=== PATIENT | female | born 1975 | race Caucasian/White ===

== ENCOUNTER 2019-07-13 19:46 | Emergency (ER) | payer OTHER ==
--- NOTE | 2019-07-13 19:57 | PDOC ---
Rapid Medical Evaluation Chief Complaint: SIRS, Suspected/Possible Time Seen by Provider: 07/13/19 19:51 Medical Evaluation: Allergies Allergy/AdvReac Type Severity Reaction Status Date / Time No Known Allergies Allergy Verified 10/30/14 08:54 Vital Signs Temp Pulse Resp BP Pulse Ox 102.4 F H 97 H 18 131/74 99 07/13/19 19:52 07/13/19 19:52 07/13/19 19:52 07/13/19 19:52 07/13/19 19:52 07/13/19 19:54 I have performed a brief in-person evaluation of this patient. The patient presents with a chief complaint of: 4 days h/o fever and posterior neck pain to top of posterior neck. Pt also report photophobia. Denies N/V. Pt seen in urgent care and sent in to r/o meningitis Pertinent physical exam findings: fever of 102F. mild TTP over occiput and posterior cervical spine of C2. no meningeal sign I have ordered the following: CBC, CMP, IV insert, blood Cx The patient will proceed to the ED for further evaluation. Discharge Disposition - Diagnosis Fever Qualifiers: Fever type: unspecified Qualified Code(s): R50.9 - Fever, unspecified Headache Qualifiers: Headache type: unspecified Headache chronicity pattern: acute headache Intractability: not intractable Qualified Code(s): R51 - Headache - Discharge Dispostion Condition at time of disposition: Stable - Referrals - Patient Instructions - Post Discharge Activity
[2019-07-13 19:59] VITALS: BMI 24.3
--- NOTE | 2019-07-13 20:14 | PDOC ---
Attending Attestation - Resident Resident Name: Lela No - ED Attending Attestation I have performed the following: I have examined & evaluated the patient, The case was reviewed & discussed with the resident, I agree w/resident's findings & plan - HPI HPI: 07/14/19 04:31 see resident hpi - Physicial Exam PE: 07/14/19 04:31 agree with resident exam - Medical Decision Making 07/14/19 04:31 43 yo female with lopez, neck pain , fever CSF not indicative of meningitis pt now neck pain free CT Brain suggests possible dental cause of infection will administer Clindamycin in ED and d/c with dental/OMFS follow up
[2019-07-13] MEDS ORDERED: ACETAMINOPHEN INJECTION 100 ML IVPB ONE (20:52)
[2019-07-13 21:10] LABS: BASO % 0.5 % (0-2.0); HEMOGLOBIN 12.7 GM/dL (10.7-15.3); LYMPH % 24.5 % (8-40); MCH 28.7 pg (25.7-33.7); MCHC 34.4 g/dl (32.0-36.0); MEAN CELL VOLUME 83.2 fl (80-96); MEAN PLT VOLUME 8.7 fl (7.5-11.1); MONO % 4.5 % (3.8-10.2); NEUT % 70.5 % (42.8-82.8); PLATELET COUNT 182 K/MM3 (134-434); RBC 4.45 M/mm3 (3.60-5.2); RDW 12.7 % (11.6-15.6); WHITE BLOOD COUNT 3.6 K/mm3 (4.0-10.0)
[2019-07-13 21:15] LABS: EPI CELLS 0.8 /HPF (0-5/HPF); HYALINE CASTS 0 /lpf (0-8); URINE APPEARANCE CLEAR; URINE BACTERIA 5.9 /hpf (NEGATIVE); URINE BILIRUBIN NEGATIVE (NEGATIVE); URINE COLOR YELLOW; URINE GLUCOSE (UA) NEGATIVE (NEGATIVE); URINE KETONE NEGATIVE (NEGATIVE); URINE LEUK ESTERASE NEGATIVE (NEGATIVE); URINE NITRITE NEGATIVE (NEGATIVE); URINE PROTEIN NEGATIVE (NEGATIVE); URINE RBC 3 /hpf (0-4); URINE WBC 0 /hpf (0-5)
[2019-07-13] MEDS ORDERED: ACETAMINOPHEN 1000 MG/100 ML VIAL (NON FORMULARY) IVPB ONE (21:17)
[2019-07-13] MEDS ORDERED: SODIUM CHLORIDE 0.9% 500 ML INFUS.BAG IV ONE (21:18)
[2019-07-13 21:23] LABS: INR 1.11 (0.83-1.09); PROTHROMBIN TIME (PATIENT) 13.1 SEC (9.7-13.0)
[2019-07-13 21:36] LABS: VENOUS PC02 37.5 mmHg (38-52); VENOUS PH 7.43 (7.31-7.41)
[2019-07-13 21:38] LABS: VENOUS PO2 < 49 mmHg (28-48)
--- NOTE | 2019-07-13 21:53 | PDOC ---
History of Present Illness - General Chief Complaint: SIRS, Suspected/Possible Stated Complaint: FEVER/HEADACHE Time Seen by Provider: 07/13/19 19:51 - History of Present Illness Initial Comments: 07/13/19 21:32 43y/o F no significant pmhx presenting with 4 days of headache, neck pain and fever. She has had a throbbing headache sparing the face and forehead with pain in her neck. The pain is temporarily relieved with tylenol and she is not aware of any exacerbating factors. She is able to move her neck in all directions but feels an occasional twinge if she turns her head very fast. The pain and fever stayed constant till today when she presented to her doctor's office who sent her to the ED to rule out meningitis. She has had some non-productive cough, photophobia and phonophobia. She denies any neck stiffness, numbness, tingling, trauma, LOC, sick contacts, recent travels or camping, abdominal pain, chest pain, dysuria, hematuria. Past History - Past Medical History Allergies/Adverse Reactions: Allergies Allergy/AdvReac Type Severity Reaction Status Date / Time No Known Allergies Allergy Verified 07/13/19 20:57 Home Medications: Ambulatory Orders NK [No Known Home Medication] 07/13/19 COPD: No - Suicide/Smoking/Psychosocial Hx Smoking Status: No Smoking History: Never smoked Number of Cigarettes Smoked Daily: 0 Hx Alcohol Use: No Substance Use Type: None Review of Systems - Review of Systems Constitutional: Yes: Chills, Fever HEENTM: No: Eye Pain, Blurred Vision, Recent change in vision Respiratory: Yes: Cough. No: Shortness of Breath, Productive cough Cardiac (ROS): No: Chest Pain, Lightheadedness ABD/GI: No: Abdominal Distended, Blood Streaked Bowels, Diarrhea : No: Burning, Dysuria Musculoskeletal: No: Back Pain Integumentary: Yes: Bruising. No: Pruritus Neurological: Yes: Symptoms reported *Physical Exam - Vital Signs Last Vital Signs Temp Pulse Resp BP Pulse Ox 102.4 F H 97 H 18 131/74 99 07/13/19 19:52 07/13/19 19:52 07/13/19 19:52 07/13/19 19:52 07/13/19 19:52 - Physical Exam General Appearance: Yes: Nourished, Appropriately Dressed. No: Apparent Distress HEENT: positive: EOMI, Normal Voice, Photophobia Neck: positive: Trachea midline, Normal Thyroid, Supple. negative: Rigidity, Tender midline Respiratory/Chest: positive: Lungs Clear, Normal Breath Sounds. negative: Respiratory Distress Cardiovascular: positive: Regular Rhythm, Regular Rate, S1, S2. negative: Edema , JVD Vascular Pulses: Dorsalis-Pedis (R): 2+, Doralis-Pedis (L): 2+ Gastrointestinal/Abdominal: positive: Normal Bowel Sounds, Flat, Soft. negative : Tender, Distended, Guarding, Mass Musculoskeletal: positive: Normal Inspection. negative: CVA Tenderness Extremity: positive: Normal Capillary Refill, Normal Inspection, Normal Range of Motion Integumentary: positive: Normal Color, Dry, Warm. negative: Cold, Clammy, Diaphoresis Neurologic: positive: central services tech II-XII NML intact, Fully Oriented, Alert, Normal Mood/ Affect, Normal Response ED Treatment Course - LABORATORY CBC & Chemistry Diagram: 07/13/19 20:00 07/13/19 20:00 - ADDITIONAL ORDERS Additional order review: Laboratory Results 07/13/19 07/13/19 07/13/19 20:00 20:00 20:00 PT with INR 13.10 H INR 1.11 H VBG pH Cancelled POC VBG pCO2 Cancelled POC VBG pO2 Cancelled VBG HCO3 Cancelled VBG O2 Sat (Arianna) Cancelled VBG Base Excess Cancelled Urine Color Yellow Urine Appearance Clear Urine pH 7.0 Ur Specific [place] 1.014 Urine Protein Negative Urine Glucose (UA) Negative Urine Ketones Negative Urine Blood Trace Urine Nitrite Negative Urine Bilirubin Negative Urine Urobilinogen 1.0 Ur Leukocyte Esterase Negative Urine WBC (Auto) 0 Urine RBC (Auto) 3 Urine Casts (Auto) 0 U Epithel Cells (Auto) 0.8 Urine Bacteria (Auto) 5.9 07/13/19 20:00 RBC 4.45 MCV 83.2 MCHC 34.4 RDW 12.7 MPV 8.7 D Neutrophils % 70.5 Lymphocytes % 24.5 Monocytes % 4.5 Eosinophils % 0.0 D Basophils % 0.5 - Medications Given in the ED: ED Medications Discontinued Medications Generic Name Dose Route Start Last Admin Trade Name Freq PRN Reason Stop Dose Admin Acetaminophen 1,000 mg 07/13/19 21:17 07/13/19 21:19 Ofirmev Injection - IVPB 07/13/19 21:18 1,000 mg ONCE ONE Administration Sodium Chloride 1,000 ml 07/13/19 21:18 07/13/19 21:19 Normal Saline - IV 07/13/19 21:19 1,000 ml ONCE ONE Administration Medical Decision Making - Medical Decision Making 07/13/19 21:54 43y/o F no significant pmhx presenting with 4 days of headache, neck pain and fever. Meningitis( bacterial vs viral) vs pneumonia vs UTI (although no urinary symptoms) infectious source needs to be investigated. Sepsis work up initiated Tylenol (1000mg) and IV Normal Saline for fever Results Lactic acid: 0.7 Strep negative Pt. signed out to Dr. Schmidt 07/13/19 21:58 07/13/19 22:00 *DC/Admit/Observation/Transfer Diagnosis at time of Disposition: Fever Qualifiers: Fever type: unspecified Qualified Code(s): R50.9 - Fever, unspecified Headache Qualifiers: Headache type: unspecified Headache chronicity pattern: acute headache Intractability: not intractable Qualified Code(s): R51 - Headache - Discharge Dispostion Condition at time of disposition: Stable - Referrals Referrals: Enrique Reed MD [Primary Care Provider] - - Patient Instructions - Post Discharge Activity
[2019-07-13 22:12] LABS: ALK PHOS 111 U/L (45-117); ANION GAP 8 MMOL/L (8-16); BILIRUBIN,TOTAL 0.6 mg/dL (0.2-1); CALCIUM 8.9 mg/dL (8.5-10.1); CHLORIDE 100 mmol/L (98-107); CO2 28 mmol/L (21-32); CREATININE 0.7 mg/dL (0.55-1.3); GLUCOSE,RANDOM 101 mg/dL (74-106); POTASSIUM 4.7 mmol/L (3.5-5.1); SGOT/AST 61 U/L (15-37); SGPT/ALT 45 U/L (13-61); SODIUM 136 mmol/L (136-145); TOT PROT 7.7 g/dl (6.4-8.2)
--- NOTE | 2019-07-14 00:42 | PDOC ---
*Physical Exam - Vital Signs Last Vital Signs Temp Pulse Resp BP Pulse Ox 102.4 F H 97 H 18 131/74 99 07/13/19 19:52 07/13/19 19:52 07/13/19 19:52 07/13/19 19:52 07/13/19 19:52 - Physical Exam General Appearance: No: Apparent Distress HEENT: negative: Pale Conjunctivae, Scleral Icterus (R), Scleral Icterus (L), Pharyngeal Erythema, Tonsillar Exudate, Tonsillar Erythema Neck: positive: Trachea midline, Lymphadenopathy (L) (~0.5cm LAD), Other (neg Rovsing's, neg Brudzinski sign). negative: Tender, Tender lateral Respiratory/Chest: positive: Lungs Clear, Normal Breath Sounds. negative: Respiratory Distress, Rapid RR, Crackles, Rales, Rhonchi, Stridor, Wheezing Cardiovascular: positive: Regular Rate, S1, S2 Gastrointestinal/Abdominal: positive: Soft. negative: Distended, Guarding, Rebound, Tenderness Extremity: positive: Normal Inspection Integumentary: positive: Dry, Warm Neurologic: positive: Fully Oriented, Alert ED Treatment Course - LABORATORY CBC & Chemistry Diagram: 07/13/19 20:00 07/13/19 20:00 - ADDITIONAL ORDERS Additional order review: Laboratory Results 07/13/19 07/13/19 07/13/19 21:20 20:00 20:00 PT with INR INR PTT (Actin FS) VBG pH 7.43 H Cancelled POC VBG pCO2 37.5 L Cancelled POC VBG pO2 < 49 H Cancelled VBG HCO3 24.5 Cancelled VBG O2 Sat (Arianna) 76.1 Cancelled VBG Base Excess 0.9 Cancelled Sodium Potassium Chloride Carbon Dioxide Anion Gap BUN Creatinine Est GFR (CKD-EPI)AfAm Est GFR (CKD-EPI)NonAf Random Glucose Lactic Acid Calcium Total Bilirubin AST ALT Alkaline Phosphatase Troponin I Total Protein Albumin Serum , Qual Negative Urine Color Urine Appearance Urine pH Ur Specific [place] Urine Protein Urine Glucose (UA) Urine Ketones Urine Blood Urine Nitrite Urine Bilirubin Urine Urobilinogen Ur Leukocyte Esterase Urine WBC (Auto) Urine RBC (Auto) Urine Casts (Auto) U Epithel Cells (Auto) Urine Bacteria (Auto) 07/13/19 07/13/19 07/13/19 20:00 20:00 20:00 PT with INR 13.10 H INR 1.11 H PTT (Actin FS) VBG pH POC VBG pCO2 POC VBG pO2 VBG HCO3 VBG O2 Sat (Arianna) VBG Base Excess Sodium Potassium Chloride Carbon Dioxide Anion Gap BUN Creatinine Est GFR (CKD-EPI)AfAm Est GFR (CKD-EPI)NonAf Random Glucose Lactic Acid 0.7 Calcium Total Bilirubin AST ALT Alkaline Phosphatase Troponin I Total Protein Albumin Serum , Qual Urine Color Yellow Urine Appearance Clear Urine pH 7.0 Ur Specific [place] 1.014 Urine Protein Negative Urine Glucose (UA) Negative Urine Ketones Negative Urine Blood Trace Urine Nitrite Negative Urine Bilirubin Negative Urine Urobilinogen 1.0 Ur Leukocyte Esterase Negative Urine WBC (Auto) 0 Urine RBC (Auto) 3 Urine Casts (Auto) 0 U Epithel Cells (Auto) 0.8 Urine Bacteria (Auto) 5.9 07/13/19 07/13/19 20:00 20:00 PT with INR INR PTT (Actin FS) 35.8 VBG pH POC VBG pCO2 POC VBG pO2 VBG HCO3 VBG O2 Sat (Arianna) VBG Base Excess Sodium 136 Potassium 4.7 Chloride 100 Carbon Dioxide 28 Anion Gap 8 BUN 9.0 Creatinine 0.7 Est GFR (CKD-EPI)AfAm 123.86 Est GFR (CKD-EPI)NonAf 106.87 Random Glucose 101 Lactic Acid Calcium 8.9 Total Bilirubin 0.6 AST 61 H ALT 45 Alkaline Phosphatase 111 Troponin I < 0.02 Total Protein 7.7 Albumin 4.0 Serum , Qual Urine Color Urine Appearance Urine pH Ur Specific [place] Urine Protein Urine Glucose (UA) Urine Ketones Urine Blood Urine Nitrite Urine Bilirubin Urine Urobilinogen Ur Leukocyte Esterase Urine WBC (Auto) Urine RBC (Auto) Urine Casts (Auto) U Epithel Cells (Auto) Urine Bacteria (Auto) 07/13/19 20:00 RBC 4.45 MCV 83.2 MCHC 34.4 RDW 12.7 MPV 8.7 D Neutrophils % 70.5 Lymphocytes % 24.5 Monocytes % 4.5 Eosinophils % 0.0 D Basophils % 0.5 - Medications Given in the ED: ED Medications Discontinued Medications Generic Name Dose Route Start Last Admin Trade Name Freq PRN Reason Stop Dose Admin Acetaminophen 1,000 mg 07/13/19 21:17 07/13/19 21:19 Ofirmev Injection - IVPB 07/13/19 21:18 1,000 mg ONCE ONE Administration Sodium Chloride 1,000 ml 07/13/19 21:18 07/13/19 21:19 Normal Saline - IV 07/13/19 21:19 1,000 ml ONCE ONE Administration Medical Decision Making - Medical Decision Making 07/14/19 04:00 - CT head neg - CT sinus: Right maxillary molars protrude through maxillary sinus floor, 9.4mm dental related cyst - LP sent 07/14/19 04:32 - LP - glucose 62, WBC 2 - discussed results with patient with likely dx being sinusitis 2/2 impacted molar - pt will be prescribed clindamycin 450mg TID, x7d - instructed to fu w/ OMFS or dentist - stable for discharge *DC/Admit/Observation/Transfer Diagnosis at time of Disposition: Fever Qualifiers: Fever type: unspecified Qualified Code(s): R50.9 - Fever, unspecified Headache Qualifiers: Headache type: unspecified Headache chronicity pattern: acute headache Intractability: not intractable Qualified Code(s): R51 - Headache Sinusitis Qualifiers: Sinusitis location: maxillary Chronicity: acute Recurrence: non-recurrent Qualified Code(s): J01.00 - Acute maxillary sinusitis, unspecified - Discharge Dispostion Disposition: HOME Condition at time of disposition: Stable Decision to Admit order: No - Prescriptions Prescriptions: Clindamycin HCl 450 mg PO TID 7 Days #63 capsule - Referrals Referrals: Enrique Reed MD [Primary Care Provider] - Manuel Ramos [Staff Physician] - Vijay Sampson [Non Staff, Medical] - Cristiano Werner [Staff Physician] - Chavo Yuen MD [Non Staff, Medical] - Andrew Francois MD [Non Staff, Medical] - Antonio Egan MD [Non Staff, Medical] - Sheyla Tejeda DMD [Staff Physician] - Adelfo Kaufman DDS [Non Staff, Medical] - - Patient Instructions Printed Discharge Instructions: DI for Sepsis -- Adult Additional Instructions: You were evaluated for fever with associated headache and neck pain. Bloodwork was not suggestive of active infection. A lumbar puncture was performed to evaluate for signs of meningitis. There were no signs of a bacterial infection of the cerebral spinal fluid. A CT of the head showed your Right maxillary molars protrude through the maxillary sinus floor with an associated 9.4mm dental-related cyst. It is possible that your headache, neck pain, fever is related to your dental issues. Please see an Oral Maxillofacial Surgeon as soon as possible to continue your work-up. You will prescribed clindamycin to be taken at home. Please finish the complete course, even if you are asymptomatic return to the ED if you experience: - severe, nonresolving headaches with associated fevers - severe facial pain - severe pain in your gums - Post Discharge Activity
[2019-07-14 03:59] LABS: BF GLUCOSE (CSF ONLY) 62 mg/dL (40-70); CSF APPEARANCE CLEAR; CSF COLOR COLORLESS; CSF WBC 2
[2019-07-14] MEDS ORDERED: CLINDAMYCIN 600MG PREMIX IVPB 600 MG/50 ML BAG IVPB ONE ×2 (04:35→04:47)
[2019-07-14 04:56] VITALS: BP 115/66; PULSE 66; TEMP 98.7
== END 2019-07-14 05:24 | disposition home or self-care (01) ==
LOC: JER 19:46
PROC: 3E033NZ Introduction of Analgesics, Hypnotics, Sedatives into Peripheral Vein, Percutaneous Approach (ICD-10-PCS; principal; 2019-07-13)
PROC: 3E03329 Introduction of Other Anti-infective into Peripheral Vein, Percutaneous Approach (ICD-10-PCS; 2019-07-13)
PROC: 3E0337Z Introduction of Electrolytic and Water Balance Substance into Peripheral Vein, Percutaneous Approach (ICD-10-PCS; 2019-07-13)
DX: R50.9 Fever, unspecified (principal); R51 Headache
CPT/HCPCS: 36415; 70450-TC; 70486-TC; 71045-TC-FY; 80053; 81003; 82803; 82945; 83605; 84157; 84484; 84703; 85025; 85610; 85730; 86644; 87040; 87070; 87086; 87205; 87880; 99284-25; J0131

== ENCOUNTER → 2023-03-18 | Day surgery (SDC) | payer OTHER | END | disposition home or self-care (01) | LOC: JRADIR 09:23 | PROVIDERS: ATTEND Internal Medicine Endocrinology, Diabetes & Metabolism | PROC: 0G9H3ZX Drainage of Right Thyroid Gland Lobe, Percutaneous Approach, Diagnostic (ICD-10-PCS; principal; 2023-03-18) | DX: E04.1 Nontoxic single thyroid nodule (principal) | CPT/HCPCS: 10005; 76942; 88173; 88305-TC ==

== ENCOUNTER 2025-02-23 07:09 | Day surgery (SDC) | payer OTHER ==
[2025-02-21 12:41] VITALS: BMI 26.5
[2025-02-23 13:17] VITALS: TEMP 98.2
[2025-02-23 13:27] VITALS: RESP 18
[2025-02-23 13:28] VITALS: BP 102/56; PULSE 62
== END 2025-02-23 13:00 | disposition home or self-care (01) ==
LOC: JASU-ENDO 07:09
PROVIDERS: ATTEND Internal Medicine Gastroenterology
PROC: 0DBL8ZX Excision of Transverse Colon, Via Natural or Artificial Opening Endoscopic, Diagnostic (ICD-10-PCS; principal; 2025-02-23 10:00)
DX: Z12.11 Encounter for screening for malignant neoplasm of colon (principal); K63.5 Polyp of colon; K64.8 Other hemorrhoids; K59.89 Other specified functional intestinal disorders; D64.9 Anemia, unspecified
CPT/HCPCS: 81025; 88305-TC